=== PATIENT | male | born 1955 | race Caucasian/White ===

== ENCOUNTER 2024-08-16 11:57 | Inpatient (IN) | payer MEDICARE, OTHER ==
[~2024-08-16] VITALS: Ht 182.9 cm; Wt 86.6 kg
[2024-08-16 16:25] VITALS: BP 146/69
[2024-08-16] MEDS ORDERED: TYLENOL 325MG325 MG PO (17:23)
[2024-08-16] MEDS ORDERED: AMITRIPTYLINE H10 M2 PO (17:24)
[2024-08-16] MEDS ORDERED: AUGMENTIN 500-1 EACH PO (17:27)
[2024-08-16] MEDS ORDERED: DULCOLAX S10 MG/SUPP RC (17:28)
[2024-08-16] MEDS ORDERED: DOCUSATE SODIUM1 TA2 PO (17:29)
[2024-08-16] MEDS ORDERED: DIAPER RASH TP (17:29)
[2024-08-16] MEDS ORDERED: VITAMIN D21250 MCG PO (17:32)
[2024-08-16] MEDS ORDERED: KERENDIA10 MG PO (17:33)
[2024-08-16] MEDS ORDERED: GABAPENTIN TAB600 MG PO (17:34)
[2024-08-16] MEDS ORDERED: GLATIRAMER20 MG/1 ML SQ (17:35)
[2024-08-16] MEDS ORDERED: LEVSIN0.125 M2 PO (17:39)
[2024-08-16] MEDS ORDERED: NOVOLOG 100U100 U/ML SQ (17:41)
[2024-08-16] MEDS ORDERED: TRESIBA FL100 UNIT/1 SQ (17:42)
[2024-08-16] MEDS ORDERED: LIDOCAINE 5%35.44 GM TP (17:43)
[2024-08-16] MEDS ORDERED: ZESTRIL5 M1 PO (17:44)
[2024-08-16] MEDS ORDERED: MS CONTIN15 MG PO ×2 (17:47)
[2024-08-16] MEDS ORDERED: MIRALAX17 GM PO (17:48)
[2024-08-16] MEDS ORDERED: FLOMAX0.4 MG PO (17:49)
[2024-08-16] MEDS ORDERED: VENLAFAXINE HY150 MG PO (17:50)
[2024-08-16] MEDS ORDERED: VENLAFAXINE HCL75 M3 PO (17:50)
[2024-08-16] MEDS ORDERED: ZOLPIDEM TART10 MG PO (17:51)
[2024-08-16] MEDS ORDERED: KLONOPIN 1MG1 MG PO (17:52)
[2024-08-16] MEDS ORDERED: PERCOCET 325 MG1 TA2 PO (17:53)
[2024-08-16] MEDS ORDERED: GLIPIZIDE ER10 M1 PO (17:55)
[2024-08-16] MEDS ORDERED: ATORVASTATIN CA20 MG PO (17:55)
[2024-08-16] MEDS ORDERED: GLUCOPHAGE PO (17:56)
[2024-08-16] MEDS ORDERED: MAGNESIUM OXID200 MG PO (17:57)
[2024-08-16 19:00] VITALS: BP 145/67
[2024-08-16] MEDS ORDERED: Acetaminophen 325 MG TAB PO PRN (19:30)
[2024-08-16] MEDS ORDERED: oxyCODONE/Acetaminophen 5-325 MG TAB PO PRN (19:30)
[2024-08-16] MEDS ORDERED: Polyethylene Glycol 3350 Powder 17 GM PACKET PO PRN (19:30)
[2024-08-16] MEDS ORDERED: Zolpidem 5 MG TAB PO PRN (19:30)
[2024-08-16] MEDS ORDERED: Sennosides/Docusate 8.6-50 MG TAB PO PRN (19:45)
[2024-08-16] MEDS ORDERED: Amitriptyline 10 MG TAB PO SCH (21:00)
[2024-08-16] MEDS ORDERED: clonazePAM 0.5 MG TABLET PO SCH (21:00)
[2024-08-16] MEDS ORDERED: Insulin Lispro (HumaLOG) SQ SCH (21:00)
[2024-08-16] MEDS ORDERED: Docusate Sodium 100 MG CAP PO SCH (21:00)
[2024-08-16] MEDS ORDERED: Gabapentin 300 MG CAP PO SCH (21:00)
[2024-08-16] MEDS ORDERED: Amoxicillin/Clavulanate K+ 500/125 MG TAB PO SCH (21:00)
[2024-08-16] MEDS ORDERED: MORPHINE 15 MG PO SCH (21:00)
[2024-08-16] MEDS ORDERED: Hyoscyamine 0.125 MG Sublingual TAB SL SCH (21:00)
[2024-08-16] MEDS ORDERED: Hyoscyamine 0.125 MG Sublingual TAB SL PRN (23:56)
[2024-08-17] MEDS ORDERED: Amoxicillin/Clavulanate K+ 500/125 MG TAB PO SCH (08:00)
[2024-08-17 08:10] VITALS: BP 130/69
[2024-08-17] MEDS ORDERED: Lisinopril 5 MG TAB PO SCH (09:00)
[2024-08-17] MEDS ORDERED: Polyethylene Glycol 3350 Powder 17 GM PACKET PO SCH (09:00)
[2024-08-17] MEDS ORDERED: Magnesium Oxide 400 MG TAB PO SCH (09:00)
[2024-08-17 19:16] VITALS: BP 125/67
[2024-08-18 07:28] VITALS: BP 129/71
[2024-08-18] MEDS ORDERED: Ergocalciferol 1.25 MG (50,000 UNITS) CAPSULE PO SCH (09:00)
[2024-08-18 19:33] VITALS: BP 137/74
[2024-08-19 08:01] VITALS: BP 136/81
[2024-08-19 19:39] VITALS: BP 129/76
[2024-08-20 07:06] VITALS: BP 135/71
[2024-08-20 19:30] VITALS: BP 143/75
[2024-08-21 06:03] LABS: BASO # 0.02 K/mm3 (0.02-0.10); EOS # 0.76 K/mm3 (0.04-0.40); EOS % 8.9 % (0.0-4.0); HEMATOCRIT 32.9 % (42.0-52.0); HEMOGLOBIN 10.4 g/dL (13.5-18.0); LYMPH# 1.74 K/mm3 (1.50-4.00); MEAN CELL VOLUME 96 fl (78-100); MEAN CORPUSCULAR HEMOGLOBIN 30 pg (27-31); MEAN CORPUSCULAR HGB CONC 32 g/dL (33-37); MEAN PLATELET VOLUME 8.6 fl (7.4-10.4); MONO # 0.55 K/mm3 (0.20-0.80); NEU # 5.33 K/mm3 (1.40-6.50); PLATELET COUNT 494 K/mm3 (130-400); RED BLOOD COUNT 3.44 M/mm3 (4.20-5.60); WHITE BLOOD COUNT 8.5 K/mm3 (4.8-10.8)
[2024-08-21 06:09] LABS: ALBUMIN 3.3 g/dL (3.4-4.8)
[2024-08-21 06:10] LABS: CALCIUM 9.3 mg/dL (8.3-10.5)
[2024-08-21 06:13] LABS: TOTAL BILIRUBIN 0.2 mg/dL (0.2-1.2)
[2024-08-21 07:00] VITALS: BP 142/69
[2024-08-21 19:12] VITALS: BP 178/75
[2024-08-22 07:26] VITALS: BP 181/112
[2024-08-22] MEDS ORDERED: amLODIPine 5 MG TAB PO ONE (07:45)
[2024-08-22] MEDS ORDERED: diphenhydrAMINE 25 MG CAP PO ONE ×3 (07:45→20:15)
[2024-08-22 19:32] VITALS: BP 130/70
[2024-08-22] MEDS ORDERED: FINERENONE 10 MG PO SCH (21:00)
[2024-08-23 07:00] VITALS: BP 128/66
[2024-08-23] MEDS ORDERED: GLATIRAMER 20 MG/1 ML SQ SCH (09:00)
[2024-08-23 19:18] VITALS: BP 142/78
[2024-08-23] MEDS ORDERED: Amitriptyline 25 MG TAB PO SCH (21:00)
[2024-08-24 07:14] VITALS: BP 110/71; BP_SYST 71
[2024-08-24 19:24] VITALS: BP 110/70
[2024-08-25 07:15] VITALS: BP 118/57
[2024-08-25 19:20] VITALS: BP 129/76
[2024-08-26 07:20] VITALS: BP 121/74; BP_SYST 124
[2024-08-26] MEDS ORDERED: Insulin Lispro (HumaLOG) SQ SCH (08:00)
[2024-08-26 19:12] VITALS: BP 136/76
[2024-08-27 07:40] VITALS: BP 133/72
== END 2024-08-27 11:35 | disposition home or self-care (01) | DRG 395 ==
LOC: MED/SURG 11:57
PROVIDERS: ADMIT Family Medicine
DX: K61.1 Rectal abscess (principal); C61 Malignant neoplasm of prostate; I10 Essential (primary) hypertension; E11.40 Type 2 diabetes mellitus with diabetic neuropathy, unspecified; E11.22 Type 2 diabetes mellitus with diabetic chronic kidney disease; N18.32 Chronic kidney disease, stage 3b; G35 Multiple sclerosis; E78.5 Hyperlipidemia, unspecified; F41.9 Anxiety disorder, unspecified; F32.A Depression, unspecified; R53.81 Other malaise; Z79.84 Long term (current) use of oral hypoglycemic drugs; Z79.4 Long term (current) use of insulin; Z79.891 Long term (current) use of opiate analgesic; Z95.4 Presence of other heart-valve replacement; Z88.1 Allergy status to other antibiotic agents
CPT/HCPCS: A9270; J1650; J1815